=== PATIENT | female | born 2000 | race Caucasian/White ===

== ENCOUNTER 2022-01-12 12:34 | Emergency (ER) | payer OTHER, SELFPAY ==
[2022-01-12] VITALS (8 sets, daily range): BP systolic 112–143; BP diastolic 67–90; PULSE 65–106; RESP 16–17; TEMP 36.6; O2SAT 98–100; BMI 26.6
--- NOTE | 2022-01-12 13:05 | ECG_ITS ---
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 Measurements Intervals [place] Rate: 79 P: 76 [place]: 170 QRS: 73 QRSD: 84 T: 48 QT: 346 QTc: 398 Interpretive Statements SINUS RHYTHM WITH SINUS ARRHYTHMIA NONSPECIFIC T-WAVE ABNORMALITY No previous ECG available for comparison Electronically Signed On 01-12-2022 16:44:19 CDT by Lupe Estrada M.D. [id number]
[2022-01-12 15:24] LABS: Basophils % 0.5 %; Eosinophils # 0.1 10^3/uL (0.0-0.8); Eosinophils % 0.7 %; Hematocrit 40.6 % (37.0-47.0); Hemoglobin 13.6 g/dL (11.5-15.3); Lymphocytes # 1.4 10^3/uL (0.8-4.8); Lymphocytes % 17.2 %; Mean Corpuscular HGB Conc 33.5 g/dL (30.0-36.0); Mean Corpuscular Hemoglobin 29.2 pg (28.0-34.0); Mean Corpuscular Volume 87.3 fl (81-99); Mean Platelet Volume 10.1 fL (7.4-10.4); Monocytes # 0.4 10^3/uL (0.2-0.9); Neutrophils # 6.24 10^3/uL (1.8-7.7); Neutrophils % 76.5 %; Nucleated Red Blood Cells % 0 %; Platelet Count 231 10^3/cmm (130-400); Red Blood Count 4.65 10^6/uL (4.1-5.3); Red Cell Distribution Width 12.2 % (12.1-15.1); White Blood Count 8.2 10^3/uL (4.0-10.0)
--- NOTE | 2022-01-12 15:24 | W.ED.ARRPALP ---
Documented by User: Derick Bansal 01/12/22 17:54 HPI - Arrhythmia/Palpitations General: Chief Complaint: Arrhythmia/Palpitations Stated Complaint: elevated heart rate Time Seen by Provider: 01/12/22 14:50 History of Present Illness: 21-year-old female presents to the emergency department chief complaint of intermittent palpitations and SVT when she developed some midsternal chest pain and pressure. Patient recently saw her primary care doctor on Sunday placed on omeprazole for presumed heartburn she presents to the ER as omeprazole seen improve her heartburn but she still has the midsternal chest discomfort patient has a known history of SVT in which she is on metoprolol for she reports that she is cut out all nicotine and caffeine in which she has been strictly diet controlled she does report increased episodes of it however recently she reports no recent infections no illness or any other associated symptoms. Associated symptoms: Deny anxiety, nausea or vomiting Review of Systems General: Reports: 10 or more systems reviewed and unremarkable except in HPI and below Const: Denies: fever(s), chills, fatigue or malaise Eyes: Denies: change in vision or blurry vision Card: Reports: chest pain and palpitations Resp: Denies: dyspnea or productive cough GI: Denies: abdominal pain, nausea or vomiting : Denies: flank pain Musc: Denies: extremity pain or extremity swelling Skin/Breast: Denies: rash or pruritus Neuro: Denies: headache(s) Psych: Denies: anxiety or depression Christophe/Lymph: Denies: easy bleeding All/Imm: Denies: urticaria, throat swelling or facial swelling Physical Exam Const: COMMON NORMALS: no acute distress, patient oriented x3 and healthy appearing HENMT: COMMON NORMALS: normocephalic and atraumatic HEAD & SCALP: normocephalic and atraumatic Eye: COMMON NORMALS: Equal, round and reactive pupils present and EOMs intact bilaterally PUPIL: Yes Equal, round and reactive pupils present Neck/C-Spine: COMMON NORMALS: full ROM, supple and no JVD Lymph: LYMPHATIC: no lymphadenopathy noted Chest: COMMONS NORMALS: normal inspection of the chest and normal palpation of entire chest wall Resp: COMMON NORMALS: normal respiratory effort, No retractions and clear to auscultation bilaterally EFFORT & INSPECTION: Yes able to speak in complete sentences and Yes symmetric chest movement AUSCULTATION: clear to auscultation bilaterally Cardio: COMMON NORMALS: no JVD, regular rate and regular rhythm RATE: regular rate RHYTHM: regular rhythm GI: COMMON NORMALS: Normal to inspection, nondistended, normoactive bowel sounds present, Soft to palpation and non-tender INSPECTION: Yes normal to inspection PALPATION: Yes Soft to palpation : COMMON NORMALS: Yes no CVA tenderness BLADDER/KIDNEY EXAM: Yes no CVA tenderness Back/Pelvis: COMMON NORMALS: no CVA tenderness Extremity: COMMON NORMALS: normal to inspection and full ROM Neuro: COMMON NORMALS: patient oriented x3, CN's II-XII intact bilaterally, moves all extremities and no focal motor deficits Psych: COMMON NORMALS: mental status grossly normal, Normal thought process present, cooperative and normal affect THOUGHT PROCESS: Normal thought process present Skin: COMMON NORMALS: no rashes or lesions noted GENERAL SKIN EXAM: no rashes or lesions noted Course Vital Signs: Vital signs: Vital Signs Temperature 97.8 F 01/12/22 13:00 Pulse Rate 71 01/12/22 20:25 Respiratory Rate 17 01/12/22 20:13 Blood Pressure 117/67 01/12/22 20:25 Pulse Oximetry 100 01/12/22 20:25 MDM - Arrhythmia/Palpitations Medical Decision Making Due to the patient's and condition I will be established labwork imaging obtained we will continue to follow. Is patient still having midsternal chest pain we will be providing her some nitroglycerin as well as aspirin she has a significant cardiac history in the family. Patient does not report any known cardiac issues besides her SVT we will continue to follow. Patient's first cardiac troponin came in [place] negative as well as second patient was had found to have elevated D-dimer 0.63 at this time her having atypical midsternal chest pain with discomfort on control we will go ahead and order a CTA of the chest for further evaluation and management to fully rule out pulmonary embolism. This patient was signed out to Dr. Wills at 1800. Lab Data : 01/12/22 15:12 01/12/22 15:12 Radiology Impressions Chest X-Ray 01/12/22 15:25 IMPRESSION: Unremarkable portable chest. Chest CTA 01/12/22 17:43 IMPRESSION: No acute findings. Laboratory Results WBC 8.2 10^3/uL (4.0-10.0) 01/12/22 15:12 RBC 4.65 10^6/uL (4.1-5.3) 01/12/22 15:12 Hgb 13.6 g/dL (11.5-15.3) 01/12/22 15:12 Hct 40.6 % (37.0-47.0) 01/12/22 15:12 MCV 87.3 fl (81-99) 01/12/22 15:12 MCH 29.2 pg (28.0-34.0) 01/12/22 15:12 MCHC 33.5 g/dL (30.0-36.0) 01/12/22 15:12 RDW 12.2 % (12.1-15.1) 01/12/22 15:12 Plt Count 231 10^3/cmm (130-400) 01/12/22 15:12 MPV 10.1 fL (7.4-10.4) 01/12/22 15:12 Neut % (Auto) 76.5 % 01/12/22 15:12 Lymph % (Auto) 17.2 % 01/12/22 15:12 [place]ick[place] % (Auto) 5.0 % 01/12/22 15:12 Eos % (Auto) 0.7 % 01/12/22 15:12 Baso % (Auto) 0.5 % 01/12/22 15:12 Neut # (Auto) 6.24 10^3/uL (1.8-7.7) 01/12/22 15:12 Lymph # (Auto) 1.4 10^3/uL (0.8-4.8) 01/12/22 15:12 [place]ick[place] # (Auto) 0.4 10^3/uL (0.2-0.9) 01/12/22 15:12 Eos # (Auto) 0.1 10^3/uL (0.0-0.8) 01/12/22 15:12 Baso # (Auto) 0.0 10^3/uL (0.0-0.1) 01/12/22 15:12 Nucleated RBC % (auto) 0 % 01/12/22 15:12 Nucleated RBCs # 0.0 /100WBC 01/12/22 15:12 D-Dimer 0.63 ug/mIFEU (0-0.59) H 01/12/22 17:10 Sodium 137 mmol/L (136-145) 01/12/22 15:12 Sodium Cancelled 01/12/22 15:12 Potassium 4.4 mmol/L (3.5-5.1) 01/12/22 15:12 Potassium Cancelled 01/12/22 15:12 Chloride 103 mmol/L (98-107) 01/12/22 15:12 Chloride Cancelled 01/12/22 15:12 Carbon Dioxide 22 mmol/L (22-29) 01/12/22 15:12 Carbon Dioxide Cancelled 01/12/22 15:12 Anion Gap 16.4 (5-19) 01/12/22 15:12 Anion Gap Cancelled 01/12/22 15:12 BUN 9 mg/dL (6-20) 01/12/22 15:12 BUN Cancelled 01/12/22 15:12 Creatinine 0.7 mg/dL (0.5-0.9) 01/12/22 15:12 Creatinine Cancelled 01/12/22 15:12 GFR Calculation 104.6 mL/min (90-130) 01/12/22 15:12 GFR Calculation Cancelled 01/12/22 15:12 Glucose 79 mg/dL (65-115) 01/12/22 15:12 Glucose Cancelled 01/12/22 15:12 Calculated Osmolality 282 mOsm/kg (285-295) L 01/12/22 15:12 Calculated Osmolality Cancelled 01/12/22 15:12 Calcium 9.4 mg/dL (8.5-10.5) 01/12/22 15:12 Calcium Cancelled 01/12/22 15:12 Magnesium 2.1 mg/dL (1.7-2.3) 01/12/22 15:12 Magnesium Cancelled 01/12/22 15:12 Total Bilirubin 0.5 mg/dL (0.15-1.2) 01/12/22 15:12 AST 20 U/L (0-32) 01/12/22 15:12 ALT 15 U/L (0-33) 01/12/22 15:12 Alkaline Phosphatase 61 IU/L (35-105) 01/12/22 15:12 Troponin T Gen 5 ng/L 6 ng/L (0-10) 01/12/22 19:25 Troponin T Baseline 6 ng/L (0-10) 01/12/22 15:12 Troponin T 120 Minute 6.00 ng/L (0-10) 01/12/22 17:10 Delta Troponin T 0 ABS# (0-10) 01/12/22 17:10 NT-Pro-B Natriuret Pep 49 pg/mL (0-125) 01/12/22 15:12 Total Protein 6.7 g/dL (6.6-8.7) 01/12/22 15:12 Albumin 4.2 g/dL (3.5-5.2) 01/12/22 15:12 Globulin 2.5 g/dL (1.3-4.6) 01/12/22 15:12 Lipase 26 U/L (13-60) 01/12/22 15:12 TSH 1.08 uIU/mL (0.27-4.20) 01/12/22 15:12 TSH Cancelled 01/12/22 15:12 Free T4 1.17 ng/dL (0.82-1.77) 01/12/22 15:12 Free T4 Cancelled 01/12/22 15:12 HCG, Qual Negative (Negative) 01/12/22 18:25 Urine Color Yellow (Yellow) 01/12/22 15:59 Urine Appearance Clear (CLEAR) 01/12/22 15:59 Urine pH 5 (5-7) 01/12/22 15:59 Ur Specific [place] 1.020 (1.005-1.030) 01/12/22 15:59 Urine Protein Neg (Negative) 01/12/22 15:59 Urine Glucose (UA) Norm (Normal) 01/12/22 15:59 Urine Ketones 2+ (Negative) H 01/12/22 15:59 Urine Blood Neg (Negative) 01/12/22 15:59 Urine Nitrate Negative (Negative) 01/12/22 15:59 Urine Bilirubin 1+ (Negative) H 01/12/22 15:59 Urine Urobilinogen Norm mg/dL (Negative) 01/12/22 15:59 Ur Leukocyte Esterase Trace (Negative) H 01/12/22 15:59 Urine RBC 0-4 /hpf (0-2) H 01/12/22 15:59 Urine WBC 5-10 /hpf (0-5) H 01/12/22 15:59 Ur Squamous Epith Cells 10-15 /hpf (0-5) H 01/12/22 15:59 Amorphous Sediment Not Reportable 01/12/22 15:59 Urine Bacteria 2+ /hpf (NONE) H 01/12/22 15:59 Urine Opiates Screen Negative ng/mL (Negative) 01/12/22 15:59 Ur Barbiturates Screen Negative ng/mL (Negative) 01/12/22 15:59 Ur Phencyclidine Scrn Negative ng/mL (Negative) 01/12/22 15:59 Ur Amphetamines Screen Negative ng/mL (Negative) 01/12/22 15:59 U Benzodiazepines Scrn Negative ng/mL (Negative) 01/12/22 15:59 Urine Cocaine Screen Negative ng/mL (Negative) 01/12/22 15:59 U Marijuana (THC) Screen Negative ng/mL (Negative) 01/12/22 15:59 EKG Data Normal sinus rhythm rate of [address] segment elevations or depressions appreciated.: Other EKG comments: Chest X-Ray 01/12/22 15:25 IMPRESSION: Unremarkable portable chest. Chest CTA 01/12/22 17:43 IMPRESSION: No acute findings. Discharge Plan Discharge Patient Disposition: Home Clinical Impression: Palpitations Condition: Stable Prescriptions: No Action citalopram 10 mg tablet 10 mg PO DAILY 0RF omeprazole 20 mg capsule,delayed release(DR/EC) 20 mg PO BID 0RF [place] 1/35 (28) 1-35 mg-mcg tablet See Rx Instructions .ROUTE .COMPLEX 0RF Rx Instructions: PER PACKAGE DIRECTIONS metoprolol tartrate 25 mg tablet 12.5 mg PO BID 0RF Discharge Orders: Discharge ED (Routine); Ordered 01/12/22 Ordered By: Eliceo Wills Referrals: Oleg Liriano MD [Family Provider] - Discharge Diet: Advance as tolerated Discharge Activity: Resume usual activity Patient Instructions: Heart Palpitations (ED) Coding Level of Care Code ED Utility Sales Representative for Chg Fwd Exam Comprehensive Documented by User: Eliceo Wills MD 01/12/22 20:37 HPI - Arrhythmia/Palpitations General: Chief Complaint: Arrhythmia/Palpitations Stated Complaint: elevated heart rate Time Seen by Provider: 01/12/22 14:50 Course Vital Signs: Vital signs: Vital Signs Temperature 97.8 F 01/12/22 13:00 Pulse Rate 71 01/12/22 20:25 Respiratory Rate 17 01/12/22 20:13 Blood Pressure 117/67 01/12/22 20:25 Pulse Oximetry 100 01/12/22 20:25 MDM - Arrhythmia/Palpitations Medical Decision Making Due to the patient's and condition I will be established labwork imaging obtained we will continue to follow. Is patient still having midsternal chest pain we will be providing her some nitroglycerin as well as aspirin she has a significant cardiac history in the family. Patient does not report any known cardiac issues besides her SVT we will continue to follow. Patient's first cardiac troponin came in [place] negative as well as second patient was had found to have elevated D-dimer 0.63 at this time her having atypical midsternal chest pain with discomfort on control we will go ahead and order a CTA of the chest for further evaluation and management to fully rule out pulmonary embolism. This patient was signed out to Dr. Wills at 1800. 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 Lab Data : 01/12/22 15:12 01/12/22 15:12 Radiology Impressions Chest X-Ray 01/12/22 15:25 IMPRESSION: Unremarkable portable chest. Chest CTA 01/12/22 17:43 IMPRESSION: No acute findings. Laboratory Results WBC 8.2 10^3/uL (4.0-10.0) 01/12/22 15:12 RBC 4.65 10^6/uL (4.1-5.3) 01/12/22 15:12 Hgb 13.6 g/dL (11.5-15.3) 01/12/22 15:12 Hct 40.6 % (37.0-47.0) 01/12/22 15:12 MCV 87.3 fl (81-99) 01/12/22 15:12 MCH 29.2 pg (28.0-34.0) 01/12/22 15:12 MCHC 33.5 g/dL (30.0-36.0) 01/12/22 15:12 RDW 12.2 % (12.1-15.1) 01/12/22 15:12 Plt Count 231 10^3/cmm (130-400) 01/12/22 15:12 MPV 10.1 fL (7.4-10.4) 01/12/22 15:12 Neut % (Auto) 76.5 % 01/12/22 15:12 Lymph % (Auto) 17.2 % 01/12/22 15:12 Hickman % (Auto) 5.0 % 01/12/22 15:12 Eos % (Auto) 0.7 % 01/12/22 15:12 Baso % (Auto) 0.5 % 01/12/22 15:12 Neut # (Auto) 6.24 10^3/uL (1.8-7.7) 01/12/22 15:12 Lymph # (Auto) 1.4 10^3/uL (0.8-4.8) 01/12/22 15:12 Hickman # (Auto) 0.4 10^3/uL (0.2-0.9) 01/12/22 15:12 Eos # (Auto) 0.1 10^3/uL (0.0-0.8) 01/12/22 15:12 Baso # (Auto) 0.0 10^3/uL (0.0-0.1) 01/12/22 15:12 Nucleated RBC % (auto) 0 % 01/12/22 15:12 Nucleated RBCs # 0.0 /100WBC 01/12/22 15:12 D-Dimer 0.63 ug/mIFEU (0-0.59) H 01/12/22 17:10 Sodium 137 mmol/L (136-145) 01/12/22 15:12 Sodium Cancelled 01/12/22 15:12 Potassium 4.4 mmol/L (3.5-5.1) 01/12/22 15:12 Potassium Cancelled 01/12/22 15:12 Chloride 103 mmol/L (98-107) 01/12/22 15:12 Chloride Cancelled 01/12/22 15:12 Carbon Dioxide 22 mmol/L (22-29) 01/12/22 15:12 Carbon Dioxide Cancelled 01/12/22 15:12 Anion Gap 16.4 (5-19) 01/12/22 15:12 Anion Gap Cancelled 01/12/22 15:12 BUN 9 mg/dL (6-20) 01/12/22 15:12 BUN Cancelled 01/12/22 15:12 Creatinine 0.7 mg/dL (0.5-0.9) 01/12/22 15:12 Creatinine Cancelled 01/12/22 15:12 GFR Calculation 104.6 mL/min (90-130) 01/12/22 15:12 GFR Calculation Cancelled 01/12/22 15:12 Glucose 79 mg/dL (65-115) 01/12/22 15:12 Glucose Cancelled 01/12/22 15:12 Calculated Osmolality 282 mOsm/kg (285-295) L 01/12/22 15:12 Calculated Osmolality Cancelled 01/12/22 15:12 Calcium 9.4 mg/dL (8.5-10.5) 01/12/22 15:12 Calcium Cancelled 01/12/22 15:12 Magnesium 2.1 mg/dL (1.7-2.3) 01/12/22 15:12 Magnesium Cancelled 01/12/22 15:12 Total Bilirubin 0.5 mg/dL (0.15-1.2) 01/12/22 15:12 AST 20 U/L (0-32) 01/12/22 15:12 ALT 15 U/L (0-33) 01/12/22 15:12 Alkaline Phosphatase 61 IU/L (35-105) 01/12/22 15:12 Troponin T Gen 5 ng/L 6 ng/L (0-10) 01/12/22 19:25 Troponin T Baseline 6 ng/L (0-10) 01/12/22 15:12 Troponin T 120 Minute 6.00 ng/L (0-10) 01/12/22 17:10 Delta Troponin T 0 ABS# (0-10) 01/12/22 17:10 NT-Pro-B Natriuret Pep 49 pg/mL (0-125) 01/12/22 15:12 Total Protein 6.7 g/dL (6.6-8.7) 01/12/22 15:12 Albumin 4.2 g/dL (3.5-5.2) 01/12/22 15:12 Globulin 2.5 g/dL (1.3-4.6) 01/12/22 15:12 Lipase 26 U/L (13-60) 01/12/22 15:12 TSH 1.08 uIU/mL (0.27-4.20) 01/12/22 15:12 TSH Cancelled 01/12/22 15:12 Free T4 1.17 ng/dL (0.82-1.77) 01/12/22 15:12 Free T4 Cancelled 01/12/22 15:12 HCG, Qual Negative (Negative) 01/12/22 18:25 Urine Color Yellow (Yellow) 01/12/22 15:59 Urine Appearance Clear (CLEAR) 01/12/22 15:59 Urine pH 5 (5-7) 01/12/22 15:59 Ur Specific [place] 1.020 (1.005-1.030) 01/12/22 15:59 Urine Protein Neg (Negative) 01/12/22 15:59 Urine Glucose (UA) Norm (Normal) 01/12/22 15:59 Urine Ketones 2+ (Negative) H 01/12/22 15:59 Urine Blood Neg (Negative) 01/12/22 15:59 Urine Nitrate Negative (Negative) 01/12/22 15:59 Urine Bilirubin 1+ (Negative) H 01/12/22 15:59 Urine Urobilinogen Norm mg/dL (Negative) 01/12/22 15:59 Ur Leukocyte Esterase Trace (Negative) H 01/12/22 15:59 Urine RBC 0-4 /hpf (0-2) H 01/12/22 15:59 Urine WBC 5-10 /hpf (0-5) H 01/12/22 15:59 Ur Squamous Epith Cells 10-15 /hpf (0-5) H 01/12/22 15:59 Amorphous Sediment Not Reportable 01/12/22 15:59 Urine Bacteria 2+ /hpf (NONE) H 01/12/22 15:59 Urine Opiates Screen Negative ng/mL (Negative) 01/12/22 15:59 Ur Barbiturates Screen Negative ng/mL (Negative) 01/12/22 15:59 Ur Phencyclidine Scrn Negative ng/mL (Negative) 01/12/22 15:59 Ur Amphetamines Screen Negative ng/mL (Negative) 01/12/22 15:59 U Benzodiazepines Scrn Negative ng/mL (Negative) 01/12/22 15:59 Urine Cocaine Screen Negative ng/mL (Negative) 01/12/22 15:59 U Marijuana (THC) Screen Negative ng/mL (Negative) 01/12/22 15:59 EKG Data Normal sinus rhythm rate of [address] segment elevations or depressions appreciated.: Other EKG comments: Chest X-Ray 01/12/22 15:25 IMPRESSION: Unremarkable portable chest. Chest CTA 01/12/22 17:43
--- NOTE | 2022-01-12 15:25 | XR_ITS ---
WS: [id number] PORTABLE CHEST HISTORY: palpitations with chest pain COMPARISON: None available. Lungs are clear and well expanded. No pleural effusion or pneumothorax. Cardiac size: Normal. Mediastinum/Aorta: Normal mediastinum. No osseous abnormality seen. XR/XR chest 1V portable [id number] IMPRESSION: Unremarkable portable chest.
--- NOTE | 2022-01-12 15:25 | ECG_ITS ---
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 Measurements Intervals [place] Rate: 88 P: 74 CT: 186 QRS: 78 QRSD: 89 T: 33 QT: 346 QTc: 419 Interpretive Statements SINUS RHYTHM WITH SINUS ARRHYTHMIA LOW QRS VOLTAGE IN PRECORDIAL LEADS [QRS DEFLECTION < 1.0 mV IN CHEST LEADS] NONSPECIFIC T-WAVE ABNORMALITY Compared to ECG 01/12/2022 14:38:28 Low QRS voltage now present T-wave abnormality still present Electronically Signed On 01-12-2022 16:44:07 CDT by Lupe Estrada M.D. [id number]
[2022-01-12 15:53] LABS: Alanine Aminotransferase 15 U/L (0-33); Albumin Level 4.2 g/dL (3.5-5.2); Alkaline Phosphatase 61 IU/L (35-105); Blood Urea Nitrogen 9 mg/dL (6-20); Calcium 9.4 mg/dL (8.5-10.5); Carbon Dioxide 22 mmol/L (22-29); Chloride 103 mmol/L (98-107); Free T4 Free Thyroxine 1.17 ng/dL (0.82-1.77); Globulin 2.5 g/dL (1.3-4.6); Glomerular Filtration Rate 104.6 mL/min (90-130); Glucose 79 mg/dL (65-115); Lipase 26 U/L (13-60); Magnesium 2.1 mg/dL (1.7-2.3); NT Pro B Type Natriuretic Pept 49 pg/mL (0-125); Osmolality Calculated 282 mOsm/kg (285-295); Sodium 137 mmol/L (136-145); Thyroid Stimulating Hormone 1.08 uIU/mL (0.27-4.20); Total Bilirubin 0.5 mg/dL (0.15-1.2); Total Protein 6.7 g/dL (6.6-8.7)
[2022-01-12 15:55] LABS: Troponin(5th) Baseline 6 ng/L (0-10)
[2022-01-12] MEDS: sodium chloride 0.9% 1,000 ML 999 ML IV (15:55)
[2022-01-12] MEDS: aspirin 81 mg Chew Tablet 324 MG PO (15:56)
[2022-01-12 15:57] LABS: Anion Gap 16.4 (5-19); Aspartate Amino Transferase 20 U/L (0-32); Potassium 4.4 mmol/L (3.5-5.1)
[2022-01-12 16:17] LABS: Amphetamines Screen Urine Negative (Negative); Barbiturates Screen Urine Negative (Negative); Benzodiazepines Screen Urine Negative (Negative); Cocaine Screen Urine Negative (Negative); Opiate Screen Urine Negative (Negative); PCP Screen Urine Negative (Negative); THC Screen Urine Negative (Negative)
[2022-01-12 16:23] LABS: Add Urine Microscopic? YES; Bilirubin Urine 1+ (Negative); Blood Urine Neg (Negative); Glucose Urine UA Norm (Normal); Ketones Urine 2+ (Negative); Leukocyte Esterase Urine Trace (Negative); Nitrate Urine Negative (Negative); Protein Urine Neg (Negative); Urine Appearance Clear (CLEAR); Urine Color Yellow (Yellow); Urobilinogen Urine Norm (Negative); pH Urine 5 (5-7)
[2022-01-12 16:24] LABS: Add Urine Culture? No; Bacteria Urine 2+ /hpf; RBC Urine 0-4 /hpf (0-2)
[2022-01-12] MEDS: lidocaine 2% viscous 15 ML, aluminum-mag hydrox-simethicon 30 ML, sucralfate oral liq 1 GM PO (16:32)
--- NOTE | 2022-01-12 17:25 | ECG_ITS ---
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 Measurements Intervals [place] Rate: 64 P: 68 HI: 181 QRS: 74 QRSD: 90 T: 52 QT: 367 QTc: 379 Interpretive Statements SINUS RHYTHM WITH SINUS ARRHYTHMIA Compared to ECG 01/12/2022 16:35:39 T-wave abnormality no longer present Electronically Signed On 01-13-2022 6:10:57 CDT by Lupe Estrada M.D. [id number]
[2022-01-12 17:40] LABS: D Dimer 0.63 ug/mIFEU (0-0.59)
--- NOTE | 2022-01-12 17:43 | CTR_ITS ---
PROCEDURE INFORMATION: Exam: CTA Chest With Contrast Exam date and time: 01/12/2022 7:38 PM Age: 21 years old Clinical indication: Chest wall pain; Additional info: Pleuritic chest pain TECHNIQUE: Imaging protocol: Computed tomographic angiography of the chest with contrast. 3D rendering (Not supervised by radiologist): MIP and/or 3D reconstructed images were created by the technologist. Radiation optimization: All CT scans at this facility use at least one of these dose optimization techniques: automated exposure control; mA and/or kV adjustment per patient size (includes targeted exams where dose is matched to clinical indication); or iterative reconstruction. Contrast material: OMNIPAQUE 350; Contrast volume: 95 ml; Contrast route: INTRAVENOUS (IV); COMPARISON: CR XR chest 1V portable [id number] 01/12/2022 3:32 PM RADIATION DOSE METRICS: Total DLP (mGy-cm): 593.39 FINDINGS: Pulmonary arteries: Normal. No pulmonary emboli. Aorta: Unremarkable. No aortic aneurysm. No aortic dissection. Lungs: Unremarkable. No consolidation. No masses. Pleural spaces: Unremarkable. No pneumothorax. No pleural effusion. Heart: No coronary artery calcifications. The heart size is normal. Lymph nodes: Unremarkable. No enlarged lymph nodes. Gallbladder and bile ducts: Cholecystectomy. Bile ducts are normal. Bones/joints: Unremarkable. No acute fracture. Soft tissues: Unremarkable. CT/CT angio chest PE protcl [id number] IMPRESSION: No acute findings.
[2022-01-12 17:48] LABS: Troponin 5 2HR Delta 0 ABS# (0-10)
[2022-01-12 18:58] LABS: HCG, Serum Qual Negative (Negative)
[2022-01-12] MEDS: iohexol 350 mg/mL 100 mL Btl IV (19:40)
[2022-01-12 19:53] LABS: Troponin T (5th) Once 6 ng/L (0-10)
[2022-01-12] MEDS: morphine 4 mg/mL SDV 1 mL IVP (20:13)
== END 2022-01-12 20:31 | disposition home or self-care (01) ==
PROVIDERS: Emergency Medicine; Emergency Provider Emergency Medicine; Family Provider Family Medicine
DX: R00.2 Palpitations (principal)
CPT/HCPCS: 71045; 71275; 80053; 80306; 81001; 83690; 83735; 83880; 84439; 84443; 84484; 84703; 85025; 85378; 93005; 96361; 96374; 99284; J2270; J7030; Q9967